=== PATIENT | female | born 1970 | race Caucasian/White ===

== ENCOUNTER 2024-05-01 04:46 | Day surgery (SDC) | payer OTHER ==
[2024-04-30 09:52] VITALS: BMI 24.2
[2024-05-01 09:20] VITALS: RESP 18; TEMP 98.7
[2024-05-01 09:59] VITALS: PULSE 54
[2024-05-01 10:01] VITALS: BP 129/62
== END 2024-05-01 10:10 | disposition home or self-care (01) ==
LOC: JASU-ENDO 04:46
PROVIDERS: ATTEND Internal Medicine Gastroenterology
PROC: 0DBM8ZX Excision of Descending Colon, Via Natural or Artificial Opening Endoscopic, Diagnostic (ICD-10-PCS; principal; 2024-05-01 09:15)
DX: Z12.11 Encounter for screening for malignant neoplasm of colon (principal); D12.4 Benign neoplasm of descending colon; K64.8 Other hemorrhoids; Z86.0100 Personal history of colon polyps, unspecified
CPT/HCPCS: 88305-TC